=== PATIENT | male | born 1975 | race American Indian/Alaskan Native ===

== ENCOUNTER 2020-06-20 19:24 | Emergency (ER) | payer BC ==
[2020-06-20] MEDS ORDERED: ASPIRIN 325 MG TAB PO ONE (19:33)
[2020-06-20 19:58] LABS: Basophils # (Auto) 0.1 K/mm3 (0.0-0.1); Basophils % (Auto) 0.6 % (0.0-1.8); Eosinophils # (Auto) 0.2 K/mm3 (0.0-0.4); Eosinophils % (Auto) 1.8 % (0.0-4.3); Hematocrit 32.9 % (35.5-45.6); Lymphocytes # (Auto) 2.5 K/mm3 (1.2-5.4); Lymphocytes % (Auto) 24.4 % (13.4-35.0); Mean Corpuscular HGB Conc 33 % (32-34); Mean Corpuscular Volume 85 fl (84-94); Monocytes # (Auto) 0.7 K/mm3 (0.0-0.8); Monocytes % (Auto) 6.7 % (0.0-7.3); Platelet Count 430 K/mm3 (140-440); Red Blood Count 3.89 M/mm3 (3.65-5.03); Red Cell Distribution Width 15.3 % (13.2-15.2)
[2020-06-20 20:10] LABS: BUN/Creatinine Ratio 8; Blood Urea Nitrogen 10 mg/dL (9-20); Calcium 9.3 mg/dL (8.4-10.2); Hemolysis Index 16
--- NOTE | 2020-06-20 20:13 | XRay Report ---
CHEST 1 VIEW 8:05 PM INDICATION / CLINICAL INFORMATION: Chest pain, heart palpitations, dizziness and dry mouth after drinking lemonade at 1600 hours today. Patient thinks he was poisoned. COMPARISON: None available. FINDINGS: SUPPORT DEVICES: None. HEART / MEDIASTINUM: The heart size and pulmonary vasculature are normal. LUNGS / PLEURA: There is mild patchy parenchymal disease in the right upper lobe. The lungs are other bhatia clear. No pleural effusion. No pneumothorax. ADDITIONAL FINDINGS: No significant additional findings. IMPRESSION: Mild right upper lobe pneumonia. Signer Name: Devin Yen MD Signed: 06/20/2020 8:09 PM Workstation Name: [id number]
--- NOTE | 2020-06-20 21:10 | Emergency Department Report ---
ED Chest Pain HPI - General Chief Complaint: Chest Pain Stated Complaint: DIZZY, CHEST PAIN, AND DRY MOUTH PUI?: No Time Seen by Provider: 06/20/20 20:35 Source: patient Mode of arrival: Ambulatory Limitations: No Limitations - History of Present Illness Initial Comments: Patient is a 44-year-old male that presents emergency room with complaints of chest pain, dizziness, lightheaded, dry mouth, palpitations. Patient states th at his symptoms started at 4 PM shortly after drinking a glass of herbal lemonade that his friend made. Patient states he is not sure what was in the lemonade. Patient states that his friend is into herbs and holistic remedies. Patient states that his chest pain was a 3 out of 10 but has since resolved. Patient states he does not have any pain or symptoms at this time. Patient states all of his symptoms have resolved. Patient states his symptoms resolved 1 hour ago. Patient denies shortness of breath. Patient states his heart palpitations and dizziness and lightheadedness and dry mouth has also resolved. Patient denies fever and chills. Patient denies cough. Patient denies nausea and vomiting. Patient states he has a past medical history of hypertension and takes Norvasc for his blood pressure. Patient states he is not on any diuretics. Patient states his blood pressures controlled with Norvasc. Patient denies recent travel. Patient denies recent international travel. Patient denies exposure to the novel coronavirus. Patient denies sick contacts. Patient denies fever and chills. Patient denies cough. Patient denies diarrhea. Patient denies coming in contact with anybody with symptoms of the novel coronavirus. MD Complaint: chest pain -: Sudden Onset: during rest, after eating Pain Location: substernal, left chest, right chest, epigastric Severity scale (0 -10): 0 Consistency: now resolved Improves With: rest, other (time) Worsens With: palpation, movement re: denies: nausea, vomting, diaphoresis, dyspnea, sense of impending doom Other Symptoms: palpitations, burping. denies: cough, fever, syncope, rash, leg swelling Treatments Prior to Arrival: none Aspirin use within the Past 7 Days: (0) No - Related Data On Oral Contraceptives: No Previous Rx's Medication Instructions Recorded Last Taken Type Esomeprazole Magnesium [NexIUM] 40 mg PO QDAY 30 Days #30 06/20/20 Unknown Rx capsule. Potassium Chloride [K-Dur] 20 meq PO DAILY 30 Days #30 tab 06/20/20 Unknown Rx Allergies Allergy/AdvReac Type Severity Reaction Status Date / Time No Known Allergies Allergy Unverified 06/20/20 19:33 Heart Score - HEART Score History: Slightly suspicious EKG: Normal Age: < 45 Risk factors: No known risk factors Troponin: < normal limit HEART Score: 0 ED Review of Systems ROS: Stated complaint: DIZZY, CHEST PAIN, AND DRY MOUTH Other details as noted in HPI Constitutional: denies: chills, fever Eyes: denies: eye pain, eye discharge, vision change ENT: denies: ear pain, throat pain Respiratory: denies: cough, shortness of breath, wheezing Cardiovascular: chest pain, palpitations Endocrine: no symptoms reported Gastrointestinal: denies: abdominal pain, nausea, diarrhea Genitourinary: denies: urgency, dysuria Musculoskeletal: denies: back pain, joint swelling, arthralgia Skin: denies: rash, lesions Neurological: as per HPI. denies: headache, weakness, paresthesias Psychiatric: denies: anxiety, depression Hematological/Lymphatic: denies: easy bleeding, easy bruising ED Past Medical Hx - Past Medical History Previous Medical History?: Yes Hx Hypertension: Yes - Surgical History Past Surgical History?: Yes Additional Surgical History: Testicular Torsion - Family History Family history: no significant - Social History Smoking Status: Never Smoker Substance Use Type: None - Medications Home Medications: Home Medications Medication Instructions Recorded Confirmed Last Taken Type Esomeprazole Magnesium [NexIUM] 40 mg PO QDAY 30 Days #30 06/20/20 Unknown Rx capsule. Potassium Chloride [K-Dur] 20 meq PO DAILY 30 Days #30 tab 06/20/20 Unknown Rx ED Physical Exam - General Limitations: No Limitations General appearance: alert, in no apparent distress - Head Head exam: Present: atraumatic, normocephalic - Eye Eye exam: Present: normal appearance - ENT ENT exam: Present: mucous membranes moist - Neck Neck exam: Present: normal inspection - Respiratory Respiratory exam: Present: normal lung sounds bilaterally. Absent: respiratory distress, wheezes, rales - Cardiovascular Cardiovascular Exam: Present: regular rate, normal rhythm. Absent: systolic murmur, diastolic murmur, rubs, gallop - GI/Abdominal GI/Abdominal exam: Present: soft, normal bowel sounds. Absent: distended, tenderness, guarding - Rectal Rectal exam: Present: deferred - Extremities Exam Extremities exam: Present: normal inspection - Back Exam Back exam: Present: normal inspection - Neurological Exam Neurological exam: Present: alert, oriented X3 - Psychiatric Psychiatric exam: Present: normal affect, normal mood - Skin Skin exam: Present: warm, dry, intact, normal color. Absent: rash ED Course Vital Signs 06/20/20 06/20/20 06/20/20 19:33 20:35 21:44 Temperature 98.2 F Pulse Rate 101 H 92 H Respiratory 16 18 18 Rate Blood Pressure 126/84 Blood Pressure 129/87 [Right] O2 Sat by Pulse 99 100 100 Oximetry - Reevaluation(s) Reevaluation #1: I discussed all results and clinical findings with patient. I discussed plan of care with patient. Patient agrees with plan of care. Patient is stable for discharge. Patient will be discharged home. Patient will need to have his potassium rechecked by his primary care within 2 to 3 days. Patient given discharge instructions. Patient voiced understanding of discharge instructions. 06/20/20 21:10 MANUEL score - Manuel Score Age > 65: (0) No Aspirin use within the Past 7 Days: (0) No 3 or more CAD Risk Factors: (0) No 2 or more Angina events in past 24 hrs: (0) No Known CAD with more than 50% Stenosis: (0) No Elevated Cardiac Markers: (0) No ST Deviation Greater than 0.5mm: (0) No MANUEL Score: 0 ED Medical Decision Making - Lab Data Result diagrams: 06/20/20 19:35 06/20/20 19:35 - EKG Data -: EKG Interpreted by Me EKG shows normal: sinus rhythm, axis, intervals, QRS complexes, ST-T waves Rate: normal - Radiology Data Radiology results: report reviewed, image reviewed interpreted by me: Chest x-ray: No pneumonia, no pneumothorax, no osseous findings, no acute findings, no foreign body. CHEST 1 VIEW 8:05 PM INDICATION / CLINICAL INFORMATION: Chest pain, heart palpitations, dizziness and dry mouth after drinking lemonade at 1600 hours today. Patient thinks he was poisoned. COMPARISON: None available. FINDINGS: SUPPORT DEVICES: None. HEART / MEDIASTINUM: The heart size and pulmonary vasculature are normal. LUNGS / PLEURA: There is mild patchy parenchymal disease in the right upper lobe. The lungs are otherwise clear. No pleural effusion. No pneumothorax. ADDITIONAL FINDINGS: No significant additional findings. IMPRESSION: Mild right upper lobe pneumonia. - Medical Decision Making Patient is a 44-year-old male that presents emergency room with complaints of chest pain, dizziness, lightheadedness, palpitations, dry mouth after drinking a homemade herbal lemonade. Patient was not sure of the ingredients that were in the lemonade. Patient's symptoms started at 4 PM and resolved 1 hour prior to the initial evaluation. Patient was asymptomatic during initial evaluation. Patient had a chest pain work-up done. Patient's labs were essentially markable except for hypokalemia. Patient's cardiac enzymes are negative. Patient's chest x-ray was read by the radiologist as a right-sided pneumonia but in my opinion the x-ray is clear and there is no signs of pneumonia. Patient does have any symptoms of pneumonia. Patient denied cough and fever. Patient denied any symptoms related to a possible pneumonia. Patient's white count was normal. Patient's EKG is within normal limits. Patient's chest x-ray was negative for acute findings. Patient stable for discharge. Patient's information was faxed over to our local cardiology group for re-stratification of his chest pain. Patient given discharge instructions. - Differential Diagnosis Chest pain, food toxicity, gastritis, gastroenteritis, electrolyte imbalanc Critical care attestation.: If time is entered above; I have spent that time in minutes in the direct care of this critically ill patient, excluding procedure time. ED Disposition Clinical Impression: Toxic effect of ingested food, Dizziness, Hypokalemia Chest pain Qualifiers: Chest pain type: unspecified Qualified Code(s): R07.9 - Chest pain, unspecified Gastritis Qualifiers: Gastritis type: unspecified gastritis Chronicity: acute Gastritis bleeding: with bleeding Qualified Code(s): K29.01 - Acute gastritis with bleeding Disposition: TO HOME OR SELFCARE Is pt being admited?: No Does the pt Need Aspirin: No Condition: Stable Instructions: Chest Pain (ED), Gastritis (ED), Diet for Ulcers and Gastritis (ED), Lightheadedness (ED), Dizziness (ED) Additional Instructions: Patient to follow-up with primary care in 2 to 3 days. Patient to follow-up with gastroenterology in 2 to 3 days. Patient to follow-up with the water treatment plant repairer in 2 to 3 days. Patient to see cardiology for re-stratification of his complaint of chest pain. Patient to rest. Patient to increase water. Patient to avoid strenuous exercise or heavy lifting until cleared by water treatment plant repairer. Patient to take Tylenol as needed for pain. Patient to take meds as directed. Patient to return to the ER if condition worsens, changes or new symptoms arise. Prescriptions: Potassium Chloride [K-Dur] 20 meq PO DAILY 30 Days #30 tab Esomeprazole Magnesium [NexIUM] 40 mg PO QDAY 30 Days #30 capsule.dr Referrals: DR DEVENDRA [Other] - 2-3 Days ALAN MILIAN MD [Staff Physician] - 2-3 Days MIGUEL MOORE MD [Staff Physician] - 2-3 Days Time of Disposition: 21:27
[2020-06-20 21:46] VITALS: BP 129/87
== END 2020-06-20 21:44 | disposition home or self-care (01) ==
LOC: ED 19:24
DX: T62.91XA Toxic effect of unspecified noxious substance eaten as food, accidental (unintentional), initial encounter (principal); K29.70 Gastritis, unspecified, without bleeding; R42 Dizziness and giddiness; E87.6 Hypokalemia; R07.89 Other chest pain; I10 Essential (primary) hypertension; Z98.890 Other specified postprocedural states; Z79.899 Other long term (current) drug therapy; Y92.89 Other specified places as the place of occurrence of the external cause
CPT/HCPCS: 36415; 71045; 80048; 84484; 85025; 93005